=== PATIENT | male | born 1935 | race Caucasian/White ===

== ENCOUNTER 2018-11-15 11:42 | Emergency (ER) | payer OTHER ==
--- NOTE | 2018-11-15 11:47 | PDOC ---
History of Present Illness - General Chief Complaint: Pain Stated Complaint: RLQ ABD PAIN Time Seen by Provider: 11/15/18 11:46 History Source: Patient Exam Limitations: No Limitations - History of Present Illness Initial Comments: 11/15/18 12:20 Pt w history of HTN. CAD, bladder CA presents to the ED complaining of the acute onset of RLQ pain that awoke him from sleep this morning. Pain is constant, non radiating and feels like "gas that doesn't go away". Denies nausea, vomiting, fever or urinary complaints. Patient had a normal bowel movement this AM and tolerated PO with a normal appetite. Took gas x and ibuprofen this AM without relief. History of appendectomy and bladder cancer s/p multiple small excisions, but denies other abdominal surgeries. Past History - Past Medical History Allergies/Adverse Reactions: Allergies Allergy/AdvReac Type Severity Reaction Status Date / Time No Known Allergies Allergy Verified 11/15/18 11:43 Home Medications: Ambulatory Orders ASA - 1 tab PO DAILY 11/15/18 Atorvastatin Ca 1 tab PO DAILY 11/15/18 Plavix 1 tab PO DAILY 11/15/18 Toprol Xl 1 tab PO DAILY 11/15/18 Review of Systems - Review of Systems Able to Perform ROS?: Yes Is the patient limited Kinyarwanda proficient: No Constitutional: No: Symptoms Reported, See HPI, Chills, Diaphoresis, Fever, Loss of Appetite, Malaise, Night Sweats, Weakness, Weight Stable, Unintentional Wgt. Loss, Unexplained wgt Loss, Other HEENTM: No: Symptoms Reported, See HPI, Eye Pain, Blurred Vision, Tearing, Recent change in vision, Double Vision, Cataracts, Ear Pain, Ocular Prothesis, Ear Discharge, Nose Pain, Nose Congestion, Tinnitus, Nose Bleeding, Hearing Loss , Throat Pain, Throat Swelling, Mouth Pain, Dental Problems, Difficulty Swallowing, Mouth Swelling, Other Respiratory: No: Symptoms reported, See HPI, Cough, Orthopnea, Shortness of Breath, SOB with Exertion, SOB at Rest, Stridor, Wheezing, Productive cough, Hemoptysis, Other Cardiac (ROS): No: Symptoms Reported, See HPI, Chest Pain, Edema, Irregular Heart Rate, Lightheadedness, Palpitations, Syncope, Chest Tightness, Other ABD/GI: Yes: Constipated, Other (abdominal pain). No: Symptoms Reported, See HPI, Abdominal Distended, Abd. Pain w/ defecation, Blood Streaked Bowels, Diarrhea, Difficulty Swallowing, Nausea, Poor Appetite, Poor Fluid Intake, Rectal Bleeding, Vomiting, Indigestion, Abdominal cramping, Tarry Stools : No: Symptoms Reported, See HPI, Burning, Dysuria, Discharge, Frequency, Flank Pain, Hematuria, Incontinence, Pain, Urgency, Testicular Mass, Testicular Swelling, Lesions, Testicular Pain, Other Musculoskeletal: No: Symptoms Reported, See HPI, Back Pain, Gout, Joint Pain, Joint Swelling, Muscle Pain, Muscle Weakness, Neck Pain, Joint Stiffness, Other Integumentary: No: Symptoms Reported, See HPI, Bruising, Change in Color, Change in Hair/Nails, Dryness, Erythema, Flushing, Lesions, Lumps, Pallor, Pruritus, Rash, Sweating, Other Neurological: No: Symptoms reported, See HPI, Headache, Numbness, Paresthesia, Pre-Existing Deficit, Seizure, Tingling, Tremors, Weakness, Unsteady Gait, Ataxia, Dizziness, Other All Other Systems: Reviewed and Negative *Physical Exam - Physical Exam Comments: 11/15/18 12:27 gen: alert, NAD HEENT: normocephalic, atraumatic Cv: rrr no m/r/g Pulm: CTA b/l abdomen: soft, non distended, + mild RLQ tenderness without guarding or rebound : no testicular tenderness, no hernias Neuro: alert and oriented x 3, CN grossly intact, ambulatory in the ED with normal gait. ED Treatment Course - LABORATORY CBC & Chemistry Diagram: 11/15/18 12:18 11/15/18 12:18 Medical Decision Making - Medical Decision Making 11/15/18 12:30 pt presents to the ED complaining of RLQ abdominal pain. Differential includes diverticulitis, less likely renal stone, less likely obstruction secondary to adhesions or cancer. Will give pain control, check labs and Ct abdomen and pelvis, reassess. 11/15/18 14:05 CT is negative, pain feels improved. Patient has just received IV tylenol. Will hold for 1 hour and discharge home if patient continues to feel well. *DC/Admit/Observation/Transfer Diagnosis at time of Disposition: Abdominal pain Qualifiers: Abdominal location: right lower quadrant Qualified Code(s): R10.31 - Right lower quadrant pain - Discharge Dispostion Disposition: HOME Condition at time of disposition: Good Decision to Admit order: No - Referrals - Patient Instructions Printed Discharge Instructions: DI for Abdominal Pain-Adult Additional Instructions: you came to the ED for abdominal pain. we did a cat scan that was negative, so it is safe for you to go home. However, if you have severe pain, pain with fever, severe nausea or vomiting, you should return to the ED. You should follow up with your primary care doctor on Friday. - Post Discharge Activity
[2018-11-15 12:04] VITALS: BP 155/81; PULSE 73; TEMP 98.4; BMI 25.8
[2018-11-15] MEDS ORDERED: SODIUM CHLORIDE 1,000 ML IV STA (12:08)
[2018-11-15] MEDS ORDERED: morphine CARPU-JECT 2 MG/1 ML DISP.SYRIN IVPUSH ONE (12:08)
[2018-11-15 12:34] LABS: BASO % 0.5 % (0-2.0); EOS % 2.3 % (0-4.5); HEMATOCRIT 43.3 % (35.4-49); HEMOGLOBIN 13.9 GM/dl (11.7-16.9); LYMPH % 23.5 % (8-40); MCH 30.1 pg (25.7-33.7); MCHC 32.1 g/dl (32.0-35.9); MEAN CELL VOLUME 93.7 fl (80-96); MONO % 7.5 % (3.8-10.2); NEUT % 66.2 % (42.8-82.8); PLATELET COUNT 162 K/MM3 (134-434); RBC 4.62 M/mm3 (4.00-5.60); RDW 13.7 % (11.9-15.9); WHITE BLOOD COUNT 7.9 K/mm3 (4.0-10.8)
[2018-11-15 12:41] LABS: ALBUMIN 3.6 g/dl (3.4-5.0); BILIRUBIN,TOTAL 0.7 mg/dl (0.2-1); CALCIUM 9.1 mg/dl (8.5-10); CREATININE 1.5 mg/dl (0.55-1.3); POTASSIUM 4.1 mmol/L (3.5-5.1); TOT PROT 6.5 g/dl (6.4-8.2)
[2018-11-15 13:09] LABS: EPITHELIAL CELLS FEW /hpf
[2018-11-15] MEDS ORDERED: ACETAMINOPHEN INJECTION 100 ML IVPB ONE (13:21)
[2018-11-15] MEDS ORDERED: ACETAMINOPHEN 1000 MG/100 ML VIAL (NON FORMULARY) IVPB ONE (13:21)
[2018-11-15] MEDS ORDERED: IBUPROFEN 400 MG TABLET (FP) PO ONE ×2 (15:09→15:10)
== END 2018-11-15 15:15 | disposition home or self-care (01) ==
LOC: FER 11:42
PROC: 3E033NZ Introduction of Analgesics, Hypnotics, Sedatives into Peripheral Vein, Percutaneous Approach (ICD-10-PCS; principal; 2018-11-15)
PROC: 3E0337Z Introduction of Electrolytic and Water Balance Substance into Peripheral Vein, Percutaneous Approach (ICD-10-PCS; 2018-11-15)
DX: R10.31 Right lower quadrant pain (principal); I10 Essential (primary) hypertension; I25.10 Atherosclerotic heart disease of native coronary artery without angina pectoris
CPT/HCPCS: 36415; 74176-TC; 80053; 81003; 81015; 85025; 99283-25; J0131; J7030